=== PATIENT | male | born 1985 | race Caucasian/White ===

== ENCOUNTER 2021-07-24 12:09 | Emergency (ER) | payer OTHER ==
[~2021-07-24] VITALS: Ht 172.7 cm; Wt 79.4 kg
[~2021-07-24 12:09] MED LIST: CRESTOR10 MG
[2021-07-24] MEDS ORDERED: METOCLOPRAMIDE10 MG PO (16:35)
[2021-07-24] MEDS ORDERED: GABAPENTIN300 M2 PO (16:35)
== END 2021-07-24 16:48 | disposition home or self-care (01) ==
LOC: ER 12:09
DX: R06.6 Hiccough (principal); E86.0 Dehydration; K29.70 Gastritis, unspecified, without bleeding; B02.9 Zoster without complications